=== PATIENT | female | born 1980 | race Caucasian/White ===

== ENCOUNTER 2016-11-29 09:47 | Emergency (ER) | payer OTHER ==
[2016-11-29 10:00] VITALS: BP 117/80; PULSE 55; RESP 18; TEMP 98.2; O2SAT 99
--- NOTE | 2016-11-29 10:40 | EDPHY ---
H & P Time Seen by Provider: 11/29/16 10:09 HPI/ROS: CHIEF COMPLAINT: left ankle pain HISTORY OF PRESENT ILLNESS: 36-year-old female arrives via private vehicle complaining of acute left lateral ankle pain after she was walking this morning , rolled her foot and felt a pop in her lateral aspect. She is able to bear weight albeit with pain. No instability. No proximal pain or injury. She also sustained an abrasion which he rubbed up against a rock. PHYSICAL EXAM (Prior to examination, patient consented to physical exam, hands were washed and my usual and customary physical exam procedures followed) 1) GENERAL: Well-developed, well-nourished, alert and oriented. Appears to be in no acute distress. 2) HEAD: Normocephalic 3) HEENT: Pupils equal, round, reactive to light bilaterally. 4) LUNGS: Breathing comfortably. 5) MUSCULOSKELETAL: Soft tissue swelling and abrasion to the lateral malleolus with no puncture wound. proximal tibia and fibula nontender .5th MT nontender negative Rivera test, compartments soft 6) SKIN: abrasion to the lateral malleolus 7) VASCULAR: DP,PT pulses and cap refill present and brisk DIFFERENTIAL DIAGNOSIS: in no particular order including but not limited to fracture, sprain, compartment syndrome Procedure: Splint A Todd boot splint was applied by ER nursing technician. After application of the splint I returned and re-examined the patient. The splint was adequately immobilizing the joint and distal to the splint the patient's circulation and sensation were intact. Patient shows no signs of compartment syndrome. Was given orthopedic precautions. Smoking Status: Never smoked Constitutional: Initial Vital Signs Temperature (C) 36.8 C 11/29/16 09:58 Heart Rate 55 L 11/29/16 09:58 Respiratory Rate 18 11/29/16 09:58 Blood Pressure 117/80 11/29/16 09:58 O2 Sat (%) 99 11/29/16 09:58 O2 Delivery Mode Room Air Allergies/Adverse Reactions: No Known Allergies Allergy (Verified 11/29/16 09:57) Home Medications: Medication Instructions Recorded NK [No Known Home Meds] 11/29/16 MDM/Departure - MDM Diagnostics: Images reviewed by myself Imaging Results: Imaging Impressions Ankle X-Ray 11/29/16 10:00 Impression: Lateral ankle sprain. No acute fracture. ED Course/Re-evaluation: Discussed limitations of x-ray in the diagnosis of ankle injury. I recommended follow-up with orthopedics and provided this referral information. She has no evidence of compartment syndrome. Given usual and customary orthopedic precautions instructions. She understands follow-up , all questions and concerns addressed by myself. - Depart Disposition: Home, Routine, Self-Care Clinical Impression: Left ankle sprain Qualifiers: Encounter type: initial encounter Involved ligament of ankle: unspecified ligament Qualified Code(s): S93.402A - Sprain of unspecified ligament of left ankle, initial encounter Condition: Good Instructions: Ankle Sprain (ED) Additional Instructions: Return to the ER immediately if you experience discoloration, have worsening pain, numbness, tingling, or any other symptoms that concern you. If you received x-rays in the emergency department today, be advised, that ligamentous , tendon, muscular, and other non-bony injury cannot be fully ruled out. Try to keep your affected extremity elevated above the level of your chest, and keep cold packs on the affected area, for the next 48 hours. Referrals: Anjum Duffy MD [Medical Doctor] - 2-3 days, call for appt.
== END 2016-11-29 10:47 | disposition home or self-care (01) ==
DX: S93.402A Sprain of unspecified ligament of left ankle, initial encounter (principal); X58.XXXA Exposure to other specified factors, initial encounter; Y99.8 Other external cause status; Y93.01 Activity, walking, marching and hiking
CPT/HCPCS: L4386

== ENCOUNTER 2017-04-05 10:08 | Emergency (ER) | payer OTHER ==
[2017-04-05] MEDS ORDERED: ONDANSETRON 4 MG/2 ML VIAL IVP ONE (10:46)
[2017-04-05] MEDS ORDERED: HYDROmorphONE/DILAUDID 1 MG/ML INJ IVP ONE ×2 (10:46→12:34)
[2017-04-05 10:51] LABS: % IMMATURE GRANULYOCYTES 0.2 % (0.0-1.1); ABSOLUTE IMMATURE GRANULOCYTES 0.02 10^3/uL (0.00-0.10); ADD DIFF? NO; ADD MORPH? NO; ADD SCAN? NO; ATYPICAL LYMPHOCYTE FLAG 10 (0-99); FRAGMENT RBC FLAG 0 (0-99); HEMATOCRIT 44.8 % (38.0-47.0); HEMOGLOBIN 15.3 g/dL (12.6-16.3); LEFT SHIFT FLG 0 (0-99); LIPEMIA HEMOLYSIS FLAG 90 (0-99); MEAN CELL HEMOGLOBIN CONCENTR. 34.2 g/dL (32.4-36.7); MEAN CELL VOLUME 90.7 fL (81.5-99.8); MEAN PLATELET VOLUME 10.8 fL (8.7-11.7); PLATELET CLUMPS FLAG 10 (0-99); PLATELET COUNT 200 10^3/uL (150-400); RED BLOOD CELL COUNT 4.94 10^6/uL (4.18-5.33); RED CELL DISTRIBUTION WIDTH 13.3 % (11.5-15.2)
[2017-04-05 11:02] LABS: COLOR PALE YELLOW; LEUKOCYTE ESTERASE,URINE NEGATIVE (NEGATIVE); NITRITE,URINE NEGATIVE (NEGATIVE)
--- NOTE | 2017-04-05 11:02 | EDPHY ---
H & P Stated Complaint: Upper abd pain since this morning;sent from PCPs office for eval Time Seen by Provider: 04/05/17 10:46 HPI/ROS: CHIEF COMPLAINT: Abdominal pain HISTORY OF PRESENT ILLNESS: The patient is a 36-year-old female who comes to the emergency department complaining of right upper quadrant pain that began yesterday evening. She has never had this pain before. He comes in waves and radiates to her back. She has been nauseous but has not vomited. No diarrhea. No fever. She denies risk of . No urinary symptoms. No lower abdominal pain. REVIEW OF SYSTEMS: Constitutional: denies: chills, fever, recent illness, recent injury EENTM: denies: blurred vision, double vision, nose congestion Respiratory: denies: cough, shortness of breath Cardiac: denies: chest pain, irregular heart rate, lightheadedness, palpitations Gastrointestinal/Abdominal: See HPI Genitourinary: denies: dysuria, frequency, hematuria, pain Musculoskeletal: denies: joint pain, muscle pain Skin: denies: lesions, rash, jaundice, bruising Neurological: denies: headache, numbness, paresthesia, tingling, dizziness, weakness Hematologic/Lymphatic: denies: blood clots, easy bleeding, easy bruising Immunologic/allergic: denies: HIV/AIDS, transplant EXAM: GENERAL: Well-appearing, well-nourished and in no acute distress. HEAD: Atraumatic, normocephalic. EYES: Pupils equal round and reactive to light, extraocular movements intact, sclera anicteric, conjunctiva are normal. ENT: TMs normal, nares patent, oropharynx clear without exudates. Moist mucous membranes. NECK: Normal range of motion, supple without lymphadenopathy or JVD. LUNGS: Breath sounds clear to auscultation bilaterally and equal. No wheezes rales or rhonchi. HEART: Regular rate and rhythm without murmurs, rubs or gallops. ABDOMEN: Right upper quadrant tenderness, no guarding or rebound BACK: No CVA tenderness, no spinal tenderness, step-offs or deformities EXTREMITIES: Normal range of motion, no pitting or edema. No clubbing or cyanosis. NEUROLOGICAL: Cranial nerves II through XII grossly intact. Normal speech, normal gait. 5/5 strength, normal movement in all extremities, normal sensation PSYCH: Normal mood, normal affect. SKIN: Warm, dry, normal turgor, no visible rashes or lesions. Source: Patient Exam Limitations: No limitations - Personal History LMP (Females 10-55): 15-21 Days Ago Current Tetanus Diphtheria and Acellular Pertussis (TDAP): Yes Tetanus Vaccine Date: < 10 years - Medical/Surgical History Hx Asthma: No Hx Chronic Respiratory Disease: No Hx Diabetes: No Hx Cardiac Disease: No Hx Renal Disease: No Hx Cirrhosis: No Hx Alcoholism: No Hx HIV/AIDS: No Hx Splenectomy or Spleen Trauma: No Other PMH: shoulder surgery - Family History Significant Family History: No pertinent family hx - Social History Smoking Status: Never smoked Alcohol Use: Sober Drug Use: None Constitutional: Initial Vital Signs Temperature (C) 36.4 C 04/05/17 10:22 Heart Rate 66 04/05/17 10:22 Respiratory Rate 18 04/05/17 10:22 Blood Pressure 124/86 H 04/05/17 10:22 O2 Sat (%) 99 04/05/17 10:22 O2 Delivery Mode Room Air O2 (L/minute) 1 Allergies/Adverse Reactions: No Known Allergies Allergy (Verified 04/05/17 10:22) Home Medications: Medication Instructions Recorded Ondansetron Odt [Zofran Odt 4 mg 4 mg PO Q4 PRN #20 tab 04/05/17 (RX)] oxyCODONE/APAP 5/325 [Percocet 1 - 2 tab PO Q4-6PRN PRN #7 tab 04/05/17 5/325 (RX)] Medical Decision Making - Diagnostics Imaging: Discussed imaging studies w/ job site superintendent Radiologist ED Course/Re-evaluation: Patient's lab work and ultrasound are unremarkable. She states that her pain was controlled but is now beginning to return. She does not have tenderness on exam. She is requesting more pain medication. I will also order a CT scan to evaluate further. 2:[address] scan is unremarkable other than a small amount of fluid in the ileum. Her symptoms have improved. She feels ready to go home. I recommended she follow up here in 24 hours if her symptoms have not improved. She and her agree with this plan. They declined further workup or testing at this time. I will discharge her with nausea and pain medication. Differential Diagnosis: Partial list of the Differential diagnosis considered include but were not limited to; biliary disease, peptic ulcer disease, gastroenteritis and although unlikely based on the history and physical exam, I also considered the kidney stones, urinary tract infection, pneumonia. I discussed these differential diagnoses and the plan with the patient as well as the usual and expected course. The patient understands that the diagnosis is provisional and that in medicine we are not always correct and that further workup is often warranted. Usual and customary warnings were given. All of the patient's questions were answered. The patient was instructed to return to the emergency department should the symptoms at all worsen or return, otherwise to followup with the physician as we discussed. - Data Points Laboratory Results: Laboratory Results 04/05/17 10:41 04/05/17 10:41 Medications Given: Discontinued Medications Hydromorphone HCl (Dilaudid) 1 mg IVP EDNOW ONE Stop: 04/05/17 10:47 Last Admin: 04/05/17 10:48 Dose: 1 mg Hydromorphone HCl (Dilaudid) 1 mg IVP EDNOW ONE Stop: 04/05/17 12:35 Last Admin: 04/05/17 12:55 Dose: 1 mg Ondansetron HCl (Zofran) 4 mg IVP EDNOW ONE Stop: 04/05/17 10:47 Last Admin: 04/05/17 10:48 Dose: 4 mg Departure - Departure Disposition: Home, Routine, Self-Care Clinical Impression: Epigastric abdominal pain Condition: Fair Instructions: Epigastric Pain (ED) Referrals: Patricia Trimble MD [Primary Care Provider] - As per Instructions Prescriptions: Ondansetron Odt [Zofran Odt 4 mg (RX)] 4 mg PO Q4 PRN #20 tab PRN Reason: Nausea & Vomiting oxyCODONE/APAP 5/325 [Percocet 5/325 (RX)] 1 - 2 tab PO Q4-6PRN PRN #7 tab PRN Reason: Pain
[2017-04-05 11:10] LABS: RBC,URINE NONE SEEN /hpf (0-3)
[2017-04-05 11:15] LABS: ALANINE AMINOTRANSFERASE 29 IU/L (9-52); ALKALINE PHOSPHATASE 43 IU/L (38-126); ANION GAP 15 mEq/L (8-16); ASPARTATE AMINOTRANSFERASE 22 IU/L (14-46); BILIRUBIN,TOTAL 0.7 mg/dL (0.1-1.4); BILIRUBIN-CONJUGATED 0.3 mg/dL (0.0-0.5); BILIRUBIN-UNCONJUGATED 0.4 mg/dL (0.0-1.1); CALCIUM 9.6 mg/dL (8.5-10.4); CARBON DIOXIDE 18 mEq/l (22-31); CHLORIDE 106 mEq/L (97-110); CREATININE 0.7 mg/dL (0.6-1.0); GLOMERULAR FILTRATION RATE > 60; GLUCOSE 82 mg/dL (70-100); POTASSIUM 4.4 mEq/L (3.5-5.2); SODIUM 139 mEq/L (134-144); TOTAL PROTEIN 8.2 g/dL (6.3-8.2)
[2017-04-05] MEDS ORDERED: IOPAMIDOL (ISOVUE-300) 100 ML BTL ONE (13:16)
[2017-04-05 14:18] VITALS: RESP 12; O2SAT 99
[2017-04-05 15:03] VITALS: BP 99/66; PULSE 50; TEMP 97
== END 2017-04-05 15:02 | disposition home or self-care (01) ==
DX: R10.13 Epigastric pain (principal)
CPT/HCPCS: 96374; J1170; J2405; Q9967